=== PATIENT | female | born 1970 ===

== ENCOUNTER → 2017-01-19 | Outpatient (REF) | payer BC | LOC: M LABNEURO 15:46 | PROVIDERS: ATTEND Physician Assistant Medical | DX: R56.9 Unspecified convulsions (principal) ==

== ENCOUNTER → 2018-02-04 | Outpatient (REF) | payer BC ==
[2018-02-04 17:28] LABS: VALPROIC ACID (DEPAKOTE) 64.8 UG/ML (50.0-100.0)
[2018-02-08 09:58] LABS: LEVETIRACETAM (KEPPRA) 18.2 ug/mL (10.0-40.0)
== END ==
LOC: M LABNEURO 15:17
DX: G40.909 Epilepsy, unspecified, not intractable, without status epilepticus (principal)